=== PATIENT | male | born 1990 | race Caucasian/White ===

== ENCOUNTER 2019-02-17 13:20 | Observation (INO) ==
[2019-02-17] MEDS ORDERED: SODIUM CHLORIDE 0.9% 1000ML 1,000 ML IV ONE (13:32)
[2019-02-17 14:06] LABS: Hematocrit (blood only) 43.5 % (42-52); Hemoglobin 15.3 g/dL (14.0-18.0); Mean Corpuscular Hemoglobin 28.8 pg (25-34); Mean Corpuscular Hgb Conc 35.2 g/dL (32-36); Mean Corpuscular Volume 81.9 fL (80-100); Mean Platelet Volume 9.5 fL (7.4-10.4); Platelet Count 301 K/uL (130-400); RDW Coefficient of Variation 13.6 % (11.5-14.5); RDW Standard Deviation 40.8 fL (36.4-46.3); Red Blood Count 5.31 M/uL (4.7-6.1); White Blood Count 13.25 K/uL (4.8-10.8)
[2019-02-17 14:17] LABS: Appearance Urine Clear (Clear); Bilirubin Urine Negative (Negative); Blood Urine Negative (Negative); Color Urine Dark Yellow; Glucose Urine UA Negative (Negative); Ketones Urine Trace (Negative); Leukocyte Esterase Urine Negative (Negative); Nitrite Urine Negative (Negative); Protein Urine Negative (Negative); Specific Gravity Urine 1.033 (1.000-1.030); Urobilinogen Urine Negative (Negative); pH Urine 5.5 (4.5-7.5)
[2019-02-17 14:23] LABS: Albumin Level 3.4 gm/dl (3.4-5.0); BUN Creatinine Ratio 15.2 (10-20); Calcium 9.5 mg/dl (8.5-10.1); Creatinine Clr Calc Pharmacy 168.9 ml/min; Est GFR (African American) 121.1; Est GFR (Non-African American) 104.5; Potassium 3.9 mmol/L (3.5-5.1)
[2019-02-17 14:26] LABS: Albumin Globulin Ratio 0.7 (0.9-2); Bilirubin,Total 0.4 mg/dl (0.2-1); Globulin 5.1 gm/dl (2.5-4.0); Total Protein 8.5 gm/dl (6.4-8.2)
[2019-02-17] MEDS ORDERED: IOVERSOL 100ml IV PRN (14:36)
--- NOTE | 2019-02-17 14:55 | CT Scan Report ---
CT SCAN OF THE ABDOMEN AND PELVIS WITH IV CONTRAST CLINICAL HISTORY: Generalized abdominal pain. COMPARISON STUDY: No priors. TECHNIQUE: Following the IV administration of 93 cc of Optiray 320, CT scan of the abdomen and pelvi s is performed from the lung bases to the proximal femora. Images are reviewed in the axial, sagittal , and coronal planes. IV contrast was administered without complication. A dose lowering technique wa s utilized adhering to the principles of ALARA. The examination is degraded by large body habitus, an d by streak artifact from the body wall abutting the CT gantry. CT DOSE: 2345.53 mGy.cm FINDINGS: Lung bases: The heart is normal in size and without pericardial effusion. There are scattered calcifi ed granulomas. The lung bases are otherwise clear. There is a tiny hiatal hernia. Liver: The contrast-enhanced liver is enlarged, measuring 18.5 cm in length. The liver demonstrates d iffusely diminished attenuation consistent with hepatic steatosis. There is no intrahepatic biliary d uctal dilatation. The hepatic veins and portal veins are patent. Gallbladder: Unremarkable. Spleen: Normal in size and attenuation. Pancreas: Unremarkable. Adrenal glands: Unremarkable. Kidneys: The contrast enhanced kidneys are normal in size and without hydronephrosis. The kidneys enh ance symmetrically. Abdominal vasculature: The abdominal aorta is normal in course and caliber. Bowel: There is no bowel obstruction. The appendix is well-visualized and normal. Peritoneum: There is trace free fluid in the pelvis. No intraperitoneal free air is seen. There is a large umbilical hernia. Inflammatory stranding and fluid is noted within the hernia sac, likely repre senting incarceration. The abdominal wall defect measures 3.6 cm in diameter. Lymphadenopathy: None. Pelvic viscera: The bladder is decompressed and grossly unremarkable. The prostate and seminal vesicl es are normal as imaged. Skeletal structures: No lytic or blastic lesions are seen. IMPRESSION: 1. There is a large fat-containing umbilical hernia. Fluid and inflammatory stranding are present wit hin the hernia sac, likely representing incarceration. 2. No bowel is present within the hernia sac. 3. Trace free fluid in the pelvis is nonspecific and likely reactive. 4. Hepatomegaly and hepatic steatosis. Electronically signed by: Bharath Campo M.D. 02/17/2019 2:54 PM
[2019-02-17 14:59] LABS: ANC (manual) 6.11 K/uL (1.4-6.5); Lymphocytes # (manual) 3.96 K/uL (1.2-3.4); Lymphocytes % (manual) 29.9 %; Monocytes # (manual) 0.34 K/uL (0.11-0.59); Monocytes % (manual) 2.6 %; Neutrophils # (manual) 6.11 K/uL (1.4-6.5); Neutrophils % (manual) 46.1 %; Reactive Lymphocytes # (manual) 2.84 K/uL; Reactive Lymphocytes % (manual) 21.4 %
[2019-02-17] MEDS ORDERED: ONDANSETRON INJ 2 MG/ML 2 ML VIAL IV PRN (15:52)
[2019-02-17] MEDS ORDERED: PROMETHAZINE HCL 12.5 MG in SODIUM CHLORIDE 0.9% 50 ML IV PRN (15:52)
[2019-02-17] MEDS ORDERED: MoRPHine SULFATE 2 MG/ML CARP IV PRN (15:52)
[2019-02-17] MEDS ORDERED: MoRPHine SULFATE 4 MG/ML 1 ML CARP\\VIAL IV PRN (15:52)
[2019-02-17] MEDS ORDERED: OXYCODONE/ACETAMINOPHEN 5mg/325mg TAB PO PRN (15:52)
[2019-02-17] MEDS ORDERED: MoRPHine SULFATE 10 MG/ML CARP/VIAL IV PRN (15:52)
[2019-02-17] MEDS ORDERED: ACETAMINOPHEN 325 MG TAB PO PRN (15:52)
[2019-02-17] MEDS ORDERED: IBUPROFEN 600 MG TAB PO PRN (15:52)
--- NOTE | 2019-02-17 16:09 | History & Physical Report ---
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 He presents with increased pain and some redness around hernia. He has had some nausea but no vomiting and is hungry. He denies fevers or chills. No diffuse abdominal pain , just some new discomfort around umbilicus. Omentum was reduced in ED bay without difficultly. Allergies Allergy/AdvReac Type Severity Reaction Status Date / Time No Known Allergies Allergy Unverified 02/17/19 14:34 Home Medications Home Medications Medication Instructions Recorded Confirmed Type aspirin 1,000 mg PO DIRECTED PRN 02/17/19 02/17/19 History Past Med/Surg History Medical History No significant past medical history Social History Preferred Language: Kazakh Feels Safe at Home: Yes Smoking Status: Never smoker Review of Systems no fever, no chills and no sweats no cough, no chest congestion, no dyspnea and no dyspnea on exertion no chest pain, no chest pain at rest, no dyspnea and no palpitations + abdominal pain and + nausea; no vomiting, no dysphagia, no change in bowel habits, no constipation and no diarrhea/loose stools no dysuria and no difficulty urinating no back pain, no joint pain, no muscle weakness and no body aches no problem reported no problem reported no problem reported no problem reported no problem reported no problem reported Physical Exam Constitutional: well developed, well nourished and + obese Eyes: PERRL, conjunctivae normal, anicteric sclerae Neck: trachea midline; neck nontender Respiratory: normal respiratory effort, lungs clear to auscultation Cardiovascular: RRR, no murmur, no edema Gastrointestinal (Abdomen): Inspection/Auscultation: abdomen normal to inspection and normal bowel sounds; abdomen not distended Percussion/Palpation: abdomen soft and + hernia (omentumwith umbilical hernia, mild erythema); abdomen nontender, no guarding and abdomen not rigid Musculoskeletal: Head/Neck/Chest: normocephalic, head atraumatic and neck supple Skin: no rashes, warm and dry Neurologic: moves all extremities Psychiatric: A+Ox3, euthymic affect Lymphatic: no lymphadenopathy ASA Classification ASA ASA2 Results & Data Vital Signs (Past 12 Hours) Vital Signs Temp Pulse Resp BP Pulse Ox 02/17/19 15:30 71 20 96 02/17/19 15:20 64 23 97 02/17/19 15:15 77 23 130/69 02/17/19 15:10 68 23 98 02/17/19 15:00 74 20 99 02/17/19 14:50 65 22 98 02/17/19 14:40 74 17 02/17/19 14:37 66 20 02/17/19 14:20 82 20 02/17/19 14:10 70 24 02/17/19 14:08 77 19 02/17/19 13:39 97 02/17/19 13:23 36.4 C L 78 20 153/93 H 97 Code Status & VTE Plan VTE Prophylaxis Plan VTE Prophylaxis will be ordered: Yes
[2019-02-17] MEDS ORDERED: cefTRIAXone SODIUM 2,000 MG in DEXTROSE 5% 50 ML IV SCH (18:00)
[2019-02-17] MEDS: LACTATED RINGER'S 1,000 ML IV SCH (18:37)
--- NOTE | 2019-02-17 19:04 | Emergency Department Note ---
Entered by Sirisha Diane acting as a scribe for Morteza Mcgee DO History of Present Illness General Chief complaint: Abdominal Pain Stated complaint: SHARP PAIN IN STOMACH DUE TO HERNIA Source: patient History of Present Illness Onset (ago): day(s) 4 Location: abdomen (central) Pain Consistency: + other (persistent) Maximum Pain Intensity: 4 Exacerbated By: + eating and + other (drinking ) Associated symptoms: + nausea/vomiting (positive nausea; negative vomiting ) and + other (negative urinary symptoms; negative testicular pain) The patient is a 28 year old male who presents to the Emergency Room with complaints of persistent central abdominal pain that began 4 days prior to arrival. The patient states that he has had a hernia here for approximately a month, but states that it did not start bothering him until this time. He reports that until approximately 2 weeks ago the hernia was reducible when he would lay down. The patient states that over these past 2 weeks the hernia has become darker in color and there has been some pus-like discharge coming out of the top of it. The patient states that he has been nauseous during this time, but denies vomiting. He denies urinary symptoms and testicular pain. The patient states that eating and drinking exacerbate his pain. The patient denies doing any new or different physical activity during this time. Home Medications Home Medications Medication Instructions Recorded Confirmed Type aspirin 1,000 mg PO DIRECTED PRN 02/17/19 02/17/19 History Allergies Allergy/AdvReac Type Severity Reaction Status Date / Time No Known Allergies Allergy Unverified 02/17/19 14:34 Past Med/Surg History Medical History No significant past medical history Social History Preferred Language: Icelandic Communication Ability: Effective Easement Man Required: No Beliefs That Will Affect Care: None Current Living Situation: Significant Other Other Information That Helps Us Care for You: No Feels Safe at Home: Yes Safety Concerns: Feels Safe At This Time Smoking Status: Never smoker Do You Dip or Chew Tobacco: No ; Second Hand Exposure: No ; Tobacco Cessation Education Requested by Patient: No Hx Alcohol Use: No Hx Substance Use: No Review of Systems See HPI for pertinent positives & negatives. and A total of 10 systems reviewed and were otherwise negative Physical Exam Vital Signs Vital Signs - 24 hr 02/17/19 13:23 02/17/19 13:39 02/17/19 14:08 Temperature 36.4 C L Temperature Source Oral Pulse Rate 78 77 Pulse Rate from SpO2 Sensor Pulse Rhythm Regular Pulse Strength Normal Respiratory Rate 20 19 Respiratory Effort / Characteristics Non-Labored Spontaneous Respiratory Depth Normal Respiratory Pattern Regular Blood Pressure 153/93 H Blood Pressure Mean 113 Blood Pressure Position Sitting Pulse Oximetry 97 97 Oxygen Delivery Method Room Air Room Air Sepsis Recent Fever Within 48 Hours No Sepsis New/Unexplained Change in Mental Status No Sepsis Action Taken by Nursing No Action Required 02/17/19 14:10 02/17/19 14:20 02/17/19 14:37 Temperature Temperature Source Pulse Rate 70 82 66 Pulse Rate from SpO2 Sensor Pulse Rhythm Pulse Strength Respiratory Rate 24 20 20 Respiratory Effort / Characteristics Respiratory Depth Respiratory Pattern Blood Pressure Blood Pressure Mean Blood Pressure Position Pulse Oximetry Oxygen Delivery Method Sepsis Recent Fever Within 48 Hours Sepsis New/Unexplained Change in Mental Status Sepsis Action Taken by Nursing 02/17/19 14:40 02/17/19 14:50 02/17/19 15:00 Temperature Temperature Source Pulse Rate 74 65 74 Pulse Rate from SpO2 Sensor 65 71 Pulse Rhythm Pulse Strength Respiratory Rate 17 22 20 Respiratory Effort / Characteristics Respiratory Depth Respiratory Pattern Blood Pressure Blood Pressure Mean Blood Pressure Position Pulse Oximetry 98 99 Oxygen Delivery Method Sepsis Recent Fever Within 48 Hours Sepsis New/Unexplained Change in Mental Status Sepsis Action Taken by Nursing 02/17/19 15:10 02/17/19 15:15 02/17/19 15:20 Temperature Temperature Source Pulse Rate 68 77 64 Pulse Rate from SpO2 Sensor 67 64 Pulse Rhythm Pulse Strength Respiratory Rate 23 23 23 Respiratory Effort / Characteristics Respiratory Depth Respiratory Pattern Blood Pressure 130/69 Blood Pressure Mean 82 Blood Pressure Position Pulse Oximetry 98 97 Oxygen Delivery Method Sepsis Recent Fever Within 48 Hours Sepsis New/Unexplained Change in Mental Status Sepsis Action Taken by Nursing 02/17/19 15:30 02/17/19 15:40 02/17/19 15:50 Temperature Temperature Source Pulse Rate 71 69 66 Pulse Rate from SpO2 Sensor 74 69 66 Pulse Rhythm Pulse Strength Respiratory Rate 20 23 22 Respiratory Effort / Characteristics Respiratory Depth Respiratory Pattern Blood Pressure Blood Pressure Mean Blood Pressure Position Pulse Oximetry 96 98 99 Oxygen Delivery Method Sepsis Recent Fever Within 48 Hours Sepsis New/Unexplained Change in Mental Status Sepsis Action Taken by Nursing GENERAL: Sitting up in bed, alert, well appearing, well nourished, no distress, non-toxic EYE EXAM: normal conjunctiva OROPHARYNX: no exudate, no erythema, lips, buccal mucosa, and tongue normal and mucous membranes are moist NECK: supple, no nuchal rigidity, no adenopathy, non-tender LUNGS: Clear to auscultation. Normal chest wall mechanics HEART: no murmurs, S1 normal and S2 normal ABDOMEN: Umbilical hernia which is tender and nonreducible with some dark discoloration along the Northern border of the umbilicus and mild erythema. Abdomen soft, normo-active bowel sounds, no rebound or guarding. BACK: Back is symmetrical on inspection and there is no deformity, no midline tenderness, no CVA tenderness. SKIN: no rashes and no bruising UPPER EXTREMITIES: upper extremities are grossly normal. LOWER EXTREMITIES: No pitting edema. NEURO EXAM: Normal sensorium, cranial nerves II-XII grossly intact, normal speech, no gross weakness of arms, no gross weakness of legs. Course Course ED COURSE: Vital signs were reviewed and showed hypertension. The patients medical record was reviewed The above diagnostic studies were performed and reviewed. ED treatments and interventions as stated above. 1327: The patient was evaluated in room B4B. A complete history and physical examination was performed. 1509: Upon reevaluation, the patient is feeling better and resting comfortably. I discussed my findings with the patient and he understands and agrees with the treatment plan. Based on the patients age, coexisting illnesses, exam and lab findings the decision to treat as an inpatient was made. The patient remained stable while under my care. 1510: The patient will be evaluated for further management by Dr. Lovell- General Surgery who will come evaluate the patient. Administered Medications Lactated Ringer's (Lr) 1,000 mls @ 100 mls/hr IV .Q10H AZUL Stop: 03/19/19 15:59 Last Admin: 02/17/19 18:37 Dose: 100 mls/hr Documented by: [id number] Ceftriaxone Sodium 2,000 mg/ (Dextrose) 70 mls @ 100 mls/hr IV Q24H AZUL; Protocol Stop: 02/27/19 17:59 Last Infusion: 02/17/19 18:36 Dose: 0 mls/hr Documented by: [id number] Admin: 02/17/19 17:52 Dose: 100 mls/hr Documented by: [id number] Ioversol (Optiray 320 100ml) 93 ml IV ONCE PRN PRN Reason: Interaction Checking Stop: 02/21/19 14:35 Last Admin: 02/17/19 14:36 Dose: 93 ml Documented by: [id number] Discontinued Medications Sodium Chloride (Nss 1000ml) 1,000 mls @ 999 mls/hr IV .Q1H1M ONE Stop: 02/17/19 14:32 Last Infusion: 02/17/19 15:36 Dose: 0 mls/hr Documented by: [id number] Admin: 02/17/19 14:25 Dose: 999 mls/hr Documented by: [id number] Medical Decision Making Differential Diagnosis Differential diagnoses includes but is not limited to gastritis, peptic ulcer disease, GERD, gallbladder disease, pancreatitis, small bowel obstruction, acute coronary syndrome, pericarditis, ischemic bowel, irritable bowel disease, irritable bowel syndrome, appendicitis, diverticulitis, malignancy, hernia, urinary tract infection, torsion, perforation, trauma, infectious. Medical Records Attestation: I reviewed the patient's medical records. Home Medications Current Medication List: was personally reviewed by me Laboratory Data Attestation: I reviewed the patient's lab results. Result diagrams: 02/17/19 13:50 02/17/19 13:50 Lab Results 02/17/19 02/17/19 02/17/19 Range/Units 13:50 13:50 13:54 WBC 13.25 H (4.8-10.8) K/uL RBC 5.31 (4.7-6.1) M/uL Hgb 15.3 (14.0-18.0) g/dL Hct 43.5 (42-52) % MCV 81.9 (80-100) fL MCH 28.8 (25-34) pg MCHC 35.2 (32-36) g/dL RDW Std Deviation 40.8 (36.4-46.3) fL RDW Coeff of Mariam 13.6 (11.5-14.5) % Plt Count 301 (130-400) K/uL MPV 9.5 (7.4-10.4) fL Neutrophils % (Manual) 46.1 % Lymphocytes % (Manual) 29.9 % Reactive Lymphs % (Man) 21.4 % Monocytes % (Manual) 2.6 % Neutrophils # (Manual) 6.11 (1.4-6.5) K/uL Total Absolute Neuts 6.11 (1.4-6.5) K/uL Lymphocytes # (Manual) 3.96 H (1.2-3.4) K/uL Reactive Lymphs # 2.84 K/uL Total Abs Lymphocytes 6.80 H (1.2-3.4) K/uL Monocytes # (Manual) 0.34 (0.11-0.59) K/uL Sodium 139 (136-145) mmol/L Potassium 3.9 (3.5-5.1) mmol/L Chloride 106 (98-107) mmol/L Carbon Dioxide 26 (21-32) mmol/L Anion Gap 7.0 (3-11) BUN 15 (7-18) mg/dl Creatinine 0.98 (0.6-1.4) mg/dl Est Cr Clr Drug Dosing 168.9 ml/min Est GFR ( Amer) 121.1 Est GFR (Non-Af Amer) 104.5 BUN/Creatinine Ratio 15.2 (10-20) Glucose 87 (70-99) mg/dl Lactate (0.4-2.0) mmol/L Calcium 9.5 (8.5-10.1) mg/dl Total Bilirubin 0.4 (0.2-1) mg/dl AST 19 (15-37) U/L ALT 24 (12-78) U/L Alkaline Phosphatase 85 (45-117) U/L Total Protein 8.5 H (6.4-8.2) gm/dl Albumin 3.4 (3.4-5.0) gm/dl Globulin 5.1 H (2.5-4.0) gm/dl Albumin/Globulin Ratio 0.7 L (0.9-2) Lipase 94 (73-393) U/L Urine Color Dark Yellow Urine Appearance Clear (Clear) Urine pH 5.5 (4.5-7.5) Ur Specific [place] 1.033 H (1.000-1.030) Urine Protein Negative (Negative) Urine Glucose (UA) Negative (Negative) Urine Ketones Trace H (Negative) Urine Blood Negative (Negative) Urine Nitrite Negative (Negative) Urine Bilirubin Negative (Negative) Urine Urobilinogen Negative (Negative) Ur Leukocyte Esterase Negative (Negative) 02/17/19 Range/Units 14:20 WBC (4.8-10.8) K/uL RBC (4.7-6.1) M/uL Hgb (14.0-18.0) g/dL Hct (42-52) % MCV (80-100) fL MCH (25-34) pg MCHC (32-36) g/dL RDW Std Deviation (36.4-46.3) fL RDW Coeff of Mariam (11.5-14.5) % Plt Count (130-400) K/uL MPV (7.4-10.4) fL Neutrophils % (Manual) % Lymphocytes % (Manual) % Reactive Lymphs % (Man) % Monocytes % (Manual) % Neutrophils # (Manual) (1.4-6.5) K/uL Total Absolute Neuts (1.4-6.5) K/uL Lymphocytes # (Manual) (1.2-3.4) K/uL Reactive Lymphs # K/uL Total Abs Lymphocytes (1.2-3.4) K/uL Monocytes # (Manual) (0.11-0.59) K/uL Sodium (136-145) mmol/L Potassium (3.5-5.1) mmol/L Chloride (98-107) mmol/L Carbon Dioxide (21-32) mmol/L Anion Gap (3-11) BUN (7-18) mg/dl Creatinine (0.6-1.4) mg/dl Est Cr Clr Drug Dosing ml/min Est GFR ( Amer) Est GFR (Non-Af Amer) BUN/Creatinine Ratio (10-20) Glucose (70-99) mg/dl Lactate 1.3 (0.4-2.0) mmol/L Calcium (8.5-10.1) mg/dl Total Bilirubin (0.2-1) mg/dl AST (15-37) U/L ALT (12-78) U/L Alkaline Phosphatase (45-117) U/L Total Protein (6.4-8.2) gm/dl Albumin (3.4-5.0) gm/dl Globulin (2.5-4.0) gm/dl Albumin/Globulin Ratio (0.9-2) Lipase (73-393) U/L Urine Color Urine Appearance (Clear) Urine pH (4.5-7.5) Ur Specific [place] (1.000-1.030) Urine Protein (Negative) Urine Glucose (UA) (Negative) Urine Ketones (Negative) Urine Blood (Negative) Urine Nitrite (Negative) Urine Bilirubin (Negative) Urine Urobilinogen (Negative) Ur Leukocyte Esterase (Negative) Imaging Data Radiologist's Impression: Radiology results as stated below per my review and the radiologist's interpretation: CT SCAN OF THE ABDOMEN AND PELVIS WITH IV CONTRAST CLINICAL HISTORY: Generalized abdominal pain. COMPARISON STUDY: No priors. TECHNIQUE: Following the IV administration of 93 cc of Optiray 320, CT scan of the abdomen and pelvis is performed from the lung bases to the proximal femora. Images are reviewed in the axial, sagittal, and coronal planes. IV contrast was administered without complication. A dose lowering technique was utilized adhering to the principles of ALARA. The examination is degraded by large body habitus, and by streak artifact from the body wall abutting the CT gantry. CT DOSE: 2345.53 mGy.cm FINDINGS: Lung bases: The heart is normal in size and without pericardial effusion. There are scattered calcified granulomas. The lung bases are otherwise clear. There is a tiny hiatal hernia. Liver: The contrast-enhanced liver is enlarged, measuring 18.5 cm in length. The liver demonstrates diffusely diminished attenuation consistent with hepatic steatosis. There is no intrahepatic biliary ductal dilatation. The hepatic veins and portal veins are patent. Gallbladder: Unremarkable. Spleen: Normal in size and attenuation. Pancreas: Unremarkable. Adrenal glands: Unremarkable. Kidneys: The contrast enhanced kidneys are normal in size and without hydronephrosis. The kidneys enhance symmetrically. Abdominal vasculature: The abdominal aorta is normal in course and caliber. Bowel: There is no bowel obstruction. The appendix is well-visualized and normal. Peritoneum: There is trace free fluid in the pelvis. No intraperitoneal free air is seen. There is a large umbilical hernia. Inflammatory stranding and fluid is noted within the hernia sac, likely representing incarceration. The abdominal wall defect measures 3.6 cm in diameter. Lymphadenopathy: None. Pelvic viscera: The bladder is decompressed and grossly unremarkable. The prostate and seminal vesicles are normal as imaged. Skeletal structures: No lytic or blastic lesions are seen. IMPRESSION: 1. There is a large fat-containing umbilical hernia. Fluid and inflammatory stranding are present within the hernia sac, likely representing incarceration. 2. No bowel is present within the hernia sac. 3. Trace free fluid in the pelvis is nonspecific and likely reactive. 4. Hepatomegaly and hepatic steatosis. Electronically signed by: Bharath Campo M.D. 02/17/2019 2:54 PM Blood Pressure Blood Pressure Findings: Elevated blood pressure Blood Pressure Disposition: elevated BP felt to be situational MDM Narrative Patient is a 28-year-old male who presents the ER for abdominal pain around his umbilicus. He notes that he has had a hernia there for over a month but it has been nonreducible for the past 2 weeks. He notes it become painful for the past 3 days. IV was established blood work was obtained showed a leukocytosis of 13,000. No significant anemia. BMP along with LFTs and lipase and bilirubin were unremarkable. UA was negative. CT abdomen pelvis shows incarcerated umbilical hernia containing fat with some stranding. Patient was given IV fluids and IV Zofran. He did declined pain medications. He was updated bedside. Discussed with general surgery and he was taken to the OR for incarcerated umbilical hernia. Impression & Plan Incarcerated umbilical hernia, Abdominal pain, Leukocytosis Discharge Plan Visit Data *Final* Discharge Date/Time: 02/17/19 17:10 Chief Complaint: Abdominal Pain Stated Complaint: SHARP PAIN IN STOMACH DUE TO HERNIA ED Provider: Morteza Mcgee Discharge Problem: Incarcerated umbilical hernia, Abdominal pain, Leukocytosis Patient Disposition: Admitted As Inpatient Discharge Instructions Interventions: ED Discharge Assessment Last Done: 02/17/19 17:10 Discharge Problem: Abdominal pain Qualifiers: Abdominal location: periumbilical Qualified Code(s): R10.33 - Periumbilical pain Leukocytosis Qualifiers: Leukocytosis type: unspecified Qualified Code(s): D72.829 - Elevated white blood cell count, unspecified The scribe's documentation has been prepared under my direction and personally reviewed by me in its entirety. I confirm that the note above accurately reflects all work, treatment, procedures, and medical decision making performed by me.
[2019-02-18] MEDS: LACTATED RINGER'S 1,000 ML IV SCH (04:45)
[2019-02-18] MEDS ORDERED: fentaNYL citrate 100 MCG/2 ML VIAL ONE ×2 (06:48→08:07)
[2019-02-18] MEDS ORDERED: PROPOFOL IV EMULSION 10 MG/ML 20 ML VIAL IV ONE (07:10)
[2019-02-18] MEDS ORDERED: LIDOCAINE HCL 2% 2 ML VIAL/AMP(20MG/ML) INFIL ONE (07:10)
[2019-02-18] MEDS ORDERED: MIDAZOLAM HCL 1 MG/ML 2ML VIAL ONE (07:10)
[2019-02-18] MEDS ORDERED: EPINEPHrine INJ 1 MG/ML AMP ONE (07:10)
[2019-02-18] MEDS ORDERED: BUPIVACAINE 0.5 % 5 MG/1 ML MPF 30ML VIAL ONE (07:11)
[2019-02-18] MEDS ORDERED: ROCURONIUM BROMIDE 10 MG/ML 5 ML VIAL ONE (07:15)
[2019-02-18] MEDS ORDERED: DEXAMETHASONE SOD INJ 4 MG/ML VIAL ONE (07:15)
[2019-02-18] MEDS ORDERED: ONDANSETRON INJ 2 MG/ML 2 ML VIAL ONE (07:15)
[2019-02-18] MEDS ORDERED: CEFAZOLIN 2,000 MG/15 ML IV PUSH IV ONE (07:27)
[2019-02-18] MEDS ORDERED: CEFAZOLIN 1,000 MG/7.5 ML IV PUSH IV ONE (07:28)
--- NOTE | 2019-02-18 07:29 | History & Physical Bridge Note ---
Date of Service February 18, 2019 History & Physical Bridge Note I have examined the patient, reviewed the History & Physical and in the interval since the performance of the History & Physical I have noted the following changes of clinical significance: no changes noted
--- NOTE | 2019-02-18 07:45 | Anesthesiology Consultation ---
Date of Service February 18, 2019 Assessment & Plan (1) Encounter for pre-operative examination: History Surgery Operation Date: 02/18/19 07:30 Proposed Procedures p Umbilical Hernia Repair - Jonn Lovell MD Height/Weight Height: 5 ft 9.5 in Weight: 158.3 kg Allergies Allergy/AdvReac Type Severity Reaction Status Date / Time No Known Allergies Allergy Unverified 02/17/19 14:34 Medications Home Medications Medication Instructions Recorded Confirmed Last Taken aspirin 1,000 mg PO DIRECTED PRN 02/17/19 02/17/19 02/17/19 1000 mg Active Medications Generic Name Dose Route Start Last Admin Trade Name Freq PRN Reason Stop Dose Admin Lactated Ringer's 1,000 mls @ 100 mls/hr 02/17/19 16:00 02/18/19 04:45 Lr IV 03/19/19 15:59 100 mls/hr .Q10H AZUL Administration Ceftriaxone Sodium 2,000 mg/ 70 mls @ 100 mls/hr 02/17/19 18:00 02/17/19 18:3 6 Dextrose IV 02/27/19 17:59 Infused Q24H AZUL Infusion Protocol Ioversol 93 ml 02/17/19 14:36 02/17/19 14:36 Optiray 320 100ml IV 02/21/19 14:35 93 ml ONCE PRN Administration Interaction Checking NPO Date Last Intake of Fluids: 02/17/19 Time Last Intake of Fluids: 23:59 Date Last Intake of Solids: 02/17/19 Time Last Intake of Solids: 23:59 Past Medical History Medical History No significant past medical history Social History Smoking Status: Never smoker Do You Dip or Chew Tobacco: No Hx Alcohol Use: No Hx Substance Use: No substance use type: does not use Physical Exam Vital Signs Last Vital Signs Temp 36.5 C 02/18/19 07:05 Pulse 76 02/18/19 07:05 Resp 18 02/18/19 07:05 BP 131/95 02/18/19 07:05 Pulse Ox 97 02/18/19 07:05 Testing Laboratory Results 02/17/19 13:50 02/17/19 13:50 Urine Color Dark Yellow 02/17/19 13:54 Urine Appearance Clear (Clear) 02/17/19 13:54 Urine pH 5.5 (4.5-7.5) 02/17/19 13:54 Ur Specific [place] 1.033 (1.000-1.030) H 02/17/19 13:54 Urine Protein Negative (Negative) 02/17/19 13:54 Urine Glucose (UA) Negative (Negative) 02/17/19 13:54 Urine Ketones Trace (Negative) H 02/17/19 13:54 Urine Nitrite Negative (Negative) 02/17/19 13:54 Ur Leukocyte Esterase Negative (Negative) 02/17/19 13:54
[2019-02-18] MEDS ORDERED: NEOSTIGMINE METHYLSULFATE 5 MG/5 ML SYR ONE (08:20)
[2019-02-18] MEDS ORDERED: GLYCOPYRROLATE 0.2 MG/ML VIAL ONE ×2 (08:20→08:43)
[2019-02-18] MEDS ORDERED: ePHEDrine sulfate 50 MG/ML SYR ONE (08:26)
[2019-02-18] MEDS ORDERED: SUCCINYLCHOLINE CHLORIDE 20 MG/ML 10 ML VIAL ONE (08:26)
--- NOTE | 2019-02-18 08:51 | Post Operative Brief Note ---
Immediate Post Op Note v1 Date of Surgery February 18, 2019 Pre & Post Diagnosis Operation Date: 02/18/19 07:30 Pre-Op Diagnosis: incarcerated umbilical hernia Post-Op Diagnosis: incarcerated umbilical hernia I identified the patient and participated in the time-out.: Yes Procedure Operation Date: 02/18/19 07:30 Actual Procedures p Open Umbilical Hernia Repair with mesh(Not Applicable) - Jonn Lovell MD Surgeon Jonn Lovell MD Genetics Nurse none Estimated Blood Loss 15 Findings Consistent with Post-Op Diagnosis
[2019-02-18] MEDS ORDERED: ePHEDrine sulfate 50 MG/ML AMP IV PRN (09:04)
[2019-02-18] MEDS ORDERED: HYDROmorphone INJ 1 MG/ML SYRINGE IV PRN (09:04)
[2019-02-18] MEDS ORDERED: fentaNYL citrate 100 MCG/2 ML VIAL IV PRN (09:04)
[2019-02-18] MEDS ORDERED: ATROPINE SULFATE 0.1 MG/ML 10ML SYR IV PRN (09:04)
[2019-02-18] MEDS ORDERED: ONDANSETRON INJ 2 MG/ML 2 ML VIAL IV PRN (09:04)
--- NOTE | 2019-02-18 09:26 | Anesthesiology Progress Note ---
Date of Service February 18, 2019 Anesthesia Post Procedure Vital Signs Vital Signs: Temp Pulse Pulse Pulse Pulse Resp BP 02/18/19 09:24 90 16 02/18/19 09:15 91 H 16 02/18/19 09:05 97 H 16 02/18/19 08:59 36.3 C L 93 H 20 02/18/19 07:05 36.5 C 76 18 02/18/19 04:44 36.4 C L 63 16 02/17/19 23:56 36.4 C L 65 16 02/17/19 17:15 36.8 C 99 H 18 02/17/19 17:10 76 23 121/80 02/17/19 17:00 76 23 121/80 02/17/19 16:00 70 22 135/71 02/17/19 15:50 66 22 02/17/19 15:40 69 23 02/17/19 15:30 71 20 02/17/19 15:20 64 23 02/17/19 15:15 77 23 130/69 02/17/19 15:10 68 23 02/17/19 15:00 74 20 02/17/19 14:50 65 22 02/17/19 14:40 74 17 02/17/19 14:37 66 20 02/17/19 14:20 82 20 02/17/19 14:10 70 24 02/17/19 14:08 77 19 02/17/19 13:39 02/17/19 13:23 36.4 C L 78 20 153/93 H BP BP Pulse Ox 02/18/19 09:24 114/68 94 02/18/19 09:15 116/65 100 02/18/19 09:05 114/64 100 02/18/19 08:59 108/62 99 02/18/19 07:05 131/95 97 02/18/19 04:44 131/79 96 02/17/19 23:56 135/68 96 02/17/19 17:15 146/98 H 97 02/17/19 17:10 97 02/17/19 17:00 97 02/17/19 16:00 98 02/17/19 15:50 99 02/17/19 15:40 98 02/17/19 15:30 96 02/17/19 15:20 97 02/17/19 15:15 02/17/19 15:10 98 02/17/19 15:00 99 02/17/19 14:50 98 02/17/19 14:40 02/17/19 14:37 02/17/19 14:20 02/17/19 14:10 02/17/19 14:08 02/17/19 13:39 97 02/17/19 13:23 97 Transfer of Care Handoff Completed per policy Notes Mental Status: alert / awake / arousable and participated in evaluation Patient Amnestic to Procedure: Yes Nausea / Vomiting: adequately controlled Pain: adequately controlled Airway Patency, RR, SpO2: stable & adequate BP & HR: stable & adequate Hydration State: stable & adequate Anesthetic Complications: no major complications apparent and Pt Satisfied with anesthetic care
--- NOTE | 2019-02-18 10:05 | Operative Report ---
DATE OF OPERATION: 02/18/2019 PREOPERATIVE DIAGNOSIS: Incarcerated umbilical hernia. POSTOPERATIVE DIAGNOSIS: Incarcerated umbilical hernia. PROCEDURE PERFORMED: Open umbilical hernia repair with 6 cm Ventralight circular mesh. SURGEON: Jonn Lovell. MARINE FIREMAN: None. ANESTHESIA: General endotracheal 0.5% Marcaine with epinephrine local. ESTIMATED BLOOD LOSS: 15 mL. SPECIMENS: Hernia sac. DRAINS: None. COMPLICATIONS: None. INDICATION FOR PROCEDURE: This is a 28-year-old white male who came to the ER last night with complaints of acute abdominal pain and tenderness around previously known umbilical hernia. A CT scan which shows incarcerated omentum. This could be reduced in the ED, but pop back in and because he was still having tenderness, plan was to repair this urgently. We talked to him in detail about the risk of recurrence, mesh infection, wound problems, bleeding. He understands this and wished to proceed. DESCRIPTION OF PROCEDURE: The patient was taken to the OR and underwent excellent general endotracheal anesthesia. His abdomen was prepped and draped in normal sterile fashion. Periumbilical incision was made and dissection was taken down to identify his fascia. He had a large incarcerated hernia sac. This was entered into and there was some omentum which was identified. This was then dissected away from the sac. The sac was completely excised around the fascia. Cautery was used for hemostasis on the omentum. The omentum was reduced back in. Because of the size of the hole which was about 2 cm, a piece of 6 cm Ventralight mesh was obtained. This was placed into the defect, was then secured with interrupted simple 0 Ethibond sutures. The fascia was trimmed so this was nicely secured. Once the mesh was in good place, after it had been dunked in water first, the cavity was then irrigated with saline. An Ethibond suture was used to create an umbilicoplasty. A 3-0 Vicryl was used to close the deep dermis and marlene were used to close the skin completing the closure off the skin. Sterile dressing was applied. He tolerated the procedure well with no complications, sent to recovery area for a period of observation and then be discharged to his room once he meets criteria. I attest to the content of the Intraoperative Record and any orders documented therein. Any exception s are noted below.
[2019-02-18] MEDS: OXYCODONE/ACETAMINOPHEN 5mg/325mg TAB PO PRN ×2 (11:00→15:14)
== END 2019-02-18 15:39 | disposition home or self-care (01) ==
LOC: ED 13:20 → 3N 13:20